=== PATIENT | female | born 1990 | race Caucasian/White ===

== ENCOUNTER 2019-11-13 06:36 | Day surgery (SDC) | payer BC ==
[~2019-11-13 06:36] MED LIST: Lactated Ringers 1,000 ML IV SCH; Sodium Chloride 0.9% 10 ML SDV IV PRN; Sodium Chloride 0.9% 10 ML Syringe FLUSH PRN; Sodium Chloride 0.9% 2.5 ML Syringe FLUSH PRN
[2019-11-13] MEDS ORDERED: Midazolam 1 MG/ML 2 ML SDV ONE (07:07)
[2019-11-13] MEDS ORDERED: Propofol 200 MG/20 ML SDV ONE (07:07)
[2019-11-13] MEDS ORDERED: Lidocaine 2% 5 ML SDV ONE (07:07)
[2019-11-13] MEDS ORDERED: fentaNYL 100 MCG/2 ML SDV ONE (07:08)
--- NOTE | 2019-11-13 07:31 | PCM.PREANE ---
Preanesthetic Assessment - Anesthesia/Transfusion/Family Hx Anesthesia History: Prior Anesthesia Without Reaction Family History of Anesthesia Reaction: No Transfusion History: No Prior Transfusion(s) - Review of Systems General: No Symptoms Pulmonary: No Symptoms Cardiovascular: No Symptoms Gastrointestinal: No Symptoms Neurological: No Symptoms Other: Reports: None - Physical Assessment NPO Status Date: 11/12/19 Vital Signs: Last Vital Signs Temp 97.5 F 11/13/19 06:50 Pulse 57 L 11/13/19 06:50 Resp 16 11/13/19 06:50 BP 113/75 11/13/19 06:50 Pulse Ox 100 11/13/19 06:50 Height: 5 ft 10 in Weight: 64.864 kg ASA Class: 2 Mental Status: Alert & Oriented x3 Airway Class: Mallampati = 1 Dentition: Reports: Normal Dentition ROM/Head Extension: Full Lungs: Clear to Auscultation, Normal Respiratory Effort Cardiovascular: Regular Rate, Regular Rhythm - Allergies Allergies/Adverse Reactions: Allergies Allergy/AdvReac Type Severity Reaction Status Date / Time No Known Allergies Allergy Verified 11/09/19 10:09 - Blood Blood Available: No - Anesthesia Plan Pre-Op Medication Ordered: None - Acknowledgements Anesthesia Type Planned: General Anesthesia (tiva) Pt an Appropriate Candidate for the Planned Anesthesia: Yes Alternatives and Risks of Anesthesia Discussed w Pt/Guardian: Yes Pt/Guardian Understands and Agrees with Anesthesia Plan: Yes PreAnesthesia Questionnaire HEENT History: Reports: Other (See Below) Other HEENT History: uses glasses for reading Musculoskeletal History: Reports: Fracture Other Musculoskeletal History: hx of fx clavicle - Past Surgical History Head Surgeries/Procedures: Reports: None HEENT Surgical History: Reports: Oral Surgery Other HEENT Surgeries/Procedures: wisdom teeth - SUBSTANCE USE Smoking Status *Q: Never Smoker Recreational Drug Use History: No - HOME MEDS Home Medications: Home Meds . [No Known Home Meds] 11/09/19 [History] - CURRENT (IN HOUSE) MEDS Current Meds: Current Medications Lactated Ringer's (Ringers, Lactated) 1,000 mls @ 125 mls/hr IV ASDIRECTED VINNY Sodium Chloride (Saline Flush) 10 ml FLUSH ASDIRECTED PRN PRN Reason: Keep Vein Open Sodium Chloride (Saline Flush) 2.5 ml FLUSH ASDIRECTED PRN PRN Reason: Keep Vein Open Sodium Chloride (Saline Flush) 10 ml FLUSH ASDIRECTED PRN PRN Reason: Keep Vein Open Sodium Chloride (Saline Flush) 2.5 ml FLUSH ASDIRECTED PRN PRN Reason: Keep Vein Open Sodium Chloride (Normal Saline) 10 ml IV ASDIRECTED PRN PRN Reason: IV Use Discontinued Medications Fentanyl (Sublimaze) Confirm Administered Dose 100 mcg .ROUTE .STK-MED ONE Stop: 11/13/19 07:09 Lidocaine (Xylocaine-Mpf 2%) Confirm Administered Dose 5 ml .ROUTE .STK-MED ONE Stop: 11/13/19 07:08 Midazolam HCl (Versed 1 Mg/Ml) Confirm Administered Dose 2 mg .ROUTE .STK-MED ONE Stop: 11/13/19 07:08 Propofol (Diprivan 20 Ml) Confirm Administered Dose 600 mg .ROUTE .STK-MED ONE Stop: 11/13/19 07:08
--- NOTE | 2019-11-13 08:46 | PCM.OPNOTE ---
- General Post-Op/Procedure Note Date of Surgery/Procedure: 11/13/19 Operative Procedure(s): Diagnostic colonoscopy Findings: Inflammation of the terminal ileum and anal canal/distal rectum Pre Op Diagnosis: bright red bleeding per rectum Post-Op Diagnosis: Inflamation of the terminal ileum and distal rectum Anesthesia Technique: MAC Primary Surgeon: Norah Goodman Condition: Good
--- NOTE | 2019-11-13 09:01 | PCM.POSTAN ---
POST ANESTHESIA ASSESSMENT - MENTAL STATUS Mental Status: Alert, Oriented - VITAL SIGNS Vital Signs: Last Vital Signs Temp 97.5 F 11/13/19 08:42 Pulse 59 L 11/13/19 08:57 Resp 10 L 11/13/19 08:57 BP 102/66 11/13/19 08:57 Pulse Ox 99 11/13/19 08:57 - RESPIRATORY Respiratory Status: Respiratory Rate WNL, Airway Patent, O2 Saturation Stable - CARDIOVASCULAR CV Status: Pulse Rate WNL, Blood Pressure Stable - GASTROINTESTINAL GI Status: No Symptoms - POST OP HYDRATION Hydration Status: Adequate & Stable
--- NOTE | 2019-11-13 09:02 | PCM48HPAN ---
Post Anesthesia Note - EVALUATION WITHIN 48HRS OF ANESTHETIC Vital Signs in Normal Range: Yes Patient Participated in Evaluation: Yes Respiratory Function Stable: Yes Airway Patent: Yes Cardiovascular Function Stable: Yes Hydration Status Stable: Yes Pain Control Satisfactory: Yes Nausea and Vomiting Control Satisfactory: Yes Mental Status Recovered: Yes Vital Signs: Last Vital Signs Temp 97.5 F 11/13/19 08:42 Pulse 59 L 11/13/19 08:57 Resp 10 L 11/13/19 08:57 BP 102/66 11/13/19 08:57 Pulse Ox 99 11/13/19 08:57
--- NOTE | 2019-11-13 11:41 | OR ---
SURGEON: NORAH GOODMAN MD DATE OF PROCEDURE: 11/13/2019 PREOPERATIVE DIAGNOSIS: Bright red bleeding per rectum. POSTOPERATIVE DIAGNOSES: Inflammation of the terminal ileum and inflammation of the rectum. PROCEDURE PERFORMED: Diagnostic colonoscopy with biopsies. PRIMARY SURGEON: Norah Goodman MD ANESTHESIA: MAC. INSTRUMENT USED: Olympus colonoscope. EXTENT OF EXAM: To the cecum. PREPARATION: Good. LIMITATIONS: None. INDICATIONS FOR EXAMINATION: The patient is a 29-year-old female who presented to clinic with 2 weeks of bright red bleeding per rectum with bowel movements. A digital rectal exam in clinic was normal. The decision was made to proceed to the operating room to perform a diagnostic colonoscopy. I explained the procedure, expected perioperative course, and risks. The patient verbalized understanding and wishes to proceed. PROCEDURE IN DETAIL: The patient was brought into the endoscopy suite and placed in the left lateral decubitus position. A time-out was completed verifying the patient's name, age, date of , allergies, and procedure to be performed. Monitored anesthesia care was induced and continuous oxygen was provided via nasal cannula throughout the procedure. After adequate sedation was achieved, a digital rectal exam was performed. Again, this was within normal limits. A well-lubricated colonoscope was inserted in the rectum and advanced under direct visualization to the level of the cecum. The cecum was identified by both visual and anatomic landmarks. A photograph was taken of the cecal cap as well as with the scope retroflexed within the cecum. The scope was then fully withdrawn while examining the color, texture, anatomy, and integrity of the mucosa from the cecum to the anal canal. The patient was noted to have inflammation around the terminal ileum. I attempted to intubate the terminal ileum, but was unable to do so. Biopsies were taken around the terminal ileum and sent to pathology for histologic review. The ascending, transverse, descending, and sigmoid colon mucosa all appeared normal. Biopsies were taken in each of these areas and sent to pathology for histologic review as well. The scope was brought into the rectum and retroflexed to allow visualization of the anal canal opening. The distal rectum appeared inflamed. Biopsies were taken of the inflamed appearing tissue circumferentially and sent to pathology, labeled as rectal biopsies. The scope was then straightened out and fully withdrawn. The cecum to anus time was 10 minutes. The patient tolerated the procedure well and was transferred to the PACU in stable condition. ENDOSCOPIC DIAGNOSES: Inflammation of the terminal ileum and inflammation of the rectum. RECOMMENDATIONS: Follow up in clinic in 2 weeks. A stool sample was taken during the scope and will be sent for stool cultures as well. CHRIS MAYORGA /[id number]
== END 2019-11-13 09:30 | disposition home or self-care (01) ==
LOC: MW.SDS 06:36
PROVIDERS: ATTEND Surgery
DX: K52.9 Noninfective gastroenteritis and colitis, unspecified (principal); K62.89 Other specified diseases of anus and rectum
CPT/HCPCS: 36415; 45380; 84703; 87045; 87046; 87449; 87899; J2001; J2250; J2704; J3010; J7120; 00811; 88305

== ENCOUNTER 2022-02-25 19:06 | Inpatient (IN) | payer BC ==
[2022-02-25] MEDS: Lactated Ringers 1,000 ML IV SCH (20:45)
[2022-02-25] MEDS ORDERED: Terbutaline 1 MG/ML SDV SUBCUT PRN (21:00)
[2022-02-25] MEDS ORDERED: Water For Irrigation,Sterile 1,000 ML Container IRR PRN (21:00)
[2022-02-25] MEDS ORDERED: Ondansetron 4 MG/2 ML SDV IVPUSH PRN (21:00)
[2022-02-25] MEDS ORDERED: Butorphanol 1 MG/ML SDV IVPUSH PRN (21:00)
[2022-02-25] MEDS ORDERED: Lidocaine 1% 50 ML MDV INJECT PRN (21:00)
[2022-02-25] MEDS ORDERED: Methylergonovine 0.2 MG/1 ML Amp IM PRN (21:00)
[2022-02-25] MEDS ORDERED: Sodium Chloride 0.9% 20 ML SDV IV PRN (21:00)
[2022-02-25] MEDS ORDERED: Calcium Carbonate 500 MG Tab.Chew PO PRN (21:00)
[2022-02-25] MEDS ORDERED: Oxytocin/0.9 % Sodium Chloride 30 UNIT/500 ML BAG IV SCH ×2 (21:00)
[2022-02-25] MEDS ORDERED: Sodium Chloride 0.9% 10 ML Syringe FLUSH PRN (21:00)
[2022-02-25] MEDS ORDERED: Misoprostol 200 MCG Tab PO PRN (21:00)
[2022-02-25] MEDS ORDERED: Carboprost Tromethamine 250 MCG/1 ML Amp IM PRN (21:00)
[2022-02-25] MEDS ORDERED: Sodium Chloride 0.9% 2.5 ML Syringe FLUSH PRN (21:00)
[2022-02-25] MEDS ORDERED: Tranexamic Acid 1,000 MG in Sodium Chloride 0.9% 100 ML IV PRN (21:00)
[2022-02-25] MEDS: Misoprostol 25 MCG (1/4 of 100 MCG) Tab VAG PRN (21:39)
[2022-02-26] MEDS: Lactated Ringers 1,000 ML IV SCH ×3 (02:31→09:54)
[2022-02-26] MEDS: Misoprostol 25 MCG (1/4 of 100 MCG) Tab VAG PRN (03:52)
[2022-02-26] MEDS ORDERED: Bupivacaine 0.5% 10 ML SDV ONE (13:45)
[2022-02-26] MEDS ORDERED: Ropivacaine/PF 400 MG/200 ML PCA ONE (13:45)
[2022-02-26] MEDS ORDERED: Phenylephrine HCl In 0.9% NaCl 1 MG/10 ML Vial IVPUSH PRN (14:20)
[2022-02-26] MEDS ORDERED: ePHEDrine 50 MG/ML SDV IVPUSH PRN ×2 (14:20)
[2022-02-26] MEDS ORDERED: Phenylephrine HCl In 0.9% NaCl 1 MG/10 ML Vial IVPUSH SCH (14:30)
[2022-02-26] MEDS ORDERED: Ropivacaine HCl/PF 400 MG in Premix Bag 1 BAG EPIDUR SCH (14:30)
[2022-02-27] MEDS ORDERED: fentaNYL 100 MCG/2 ML SDV ONE (00:21)
[2022-02-27] MEDS ORDERED: Bupivacaine 0.5% 10 ML SDV ONE ×2 (00:21→01:08)
[2022-02-27] MEDS ORDERED: Lidocaine 2% 5 ML SDV ONE ×2 (00:21→00:46)
[2022-02-27] MEDS ORDERED: Citric Acid/Sodium Citrate Solution 30 ML Cup PO ONE (00:26)
[2022-02-27] MEDS ORDERED: Sodium Chloride 0.9% 20 ML SDV IV PRN (00:26)
[2022-02-27] MEDS ORDERED: ceFAZolin 2 GM in Premix Bag 1 BAG IV ONE (00:26)
[2022-02-27] MEDS ORDERED: Terbutaline 1 MG/ML SDV SUBCUT PRN (00:26)
[2022-02-27] MEDS ORDERED: Azithromycin 500 MG in Sodium Chloride 0.9% 250 ML IV ONE (00:26)
[2022-02-27] MEDS ORDERED: Sodium Chloride 0.9% 10 ML Syringe FLUSH PRN (00:26)
[2022-02-27] MEDS ORDERED: Sodium Chloride 0.9% 2.5 ML Syringe FLUSH PRN (00:26)
[2022-02-27] MEDS ORDERED: Oxytocin/0.9 % Sodium Chloride 30 UNIT/500 ML BAG IV SCH ×2 (00:30→01:45)
[2022-02-27] MEDS ORDERED: Lactated Ringers 1,000 ML IV SCH ×2 (00:30→01:45)
[2022-02-27] MEDS ORDERED: ceFAZolin 1 GM Vial ONE (00:31)
[2022-02-27] MEDS ORDERED: Ondansetron 4 MG/2 ML SDV ONE (00:31)
[2022-02-27] MEDS ORDERED: Oxytocin 10 Units/1 ML SDV ONE (00:31)
[2022-02-27] MEDS ORDERED: Dexamethasone 4 MG/ML 5 ML MDV ONE (00:31)
[2022-02-27] MEDS ORDERED: Ketorolac 30 MG/ML SDV ONE (00:31)
[2022-02-27] MEDS ORDERED: Azithromycin 500 MG Vial ONE (00:33)
[2022-02-27] MEDS ORDERED: Ropivacaine 0.5% 5 MG/ML 30 ML SDV ONE (01:08)
[2022-02-27] MEDS ORDERED: Morphine PF 10 MG/10 ML SDV ONE (01:09)
[2022-02-27] MEDS ORDERED: Oxytocin 10 Units/1 ML SDV IM PRN (01:31)
[2022-02-27] MEDS ORDERED: Tranexamic Acid 1,000 MG in Sodium Chloride 0.9% 100 ML IV PRN (01:31)
[2022-02-27] MEDS ORDERED: Methylergonovine 0.2 MG/1 ML Amp IM PRN (01:31)
[2022-02-27] MEDS ORDERED: Lanolin 100% Cream 7 GM Tube TOP PRN (01:31)
[2022-02-27] MEDS ORDERED: Misoprostol 200 MCG Tab RECTAL PRN (01:31)
[2022-02-27] MEDS ORDERED: Bisacodyl 10 MG Supp RECTAL PRN (01:31)
[2022-02-27] MEDS ORDERED: diphenhydrAMINE 50 MG/ML SDV IVPUSH PRN ×2 (01:31→01:56)
[2022-02-27] MEDS ORDERED: Ondansetron 4 MG/2 ML SDV IVPUSH PRN ×3 (01:31→01:56)
[2022-02-27] MEDS ORDERED: Ketorolac 30 MG/ML SDV IVPUSH SCH (01:45)
[2022-02-27] MEDS ORDERED: fentaNYL 100 MCG/2 ML SDV IVPUSH PRN (01:56)
[2022-02-27] MEDS ORDERED: Naloxone 0.4 MG/ML SDV IVPUSH PRN (01:56)
[2022-02-27] MEDS ORDERED: Morphine 2 MG/ML SYRINGE IVPUSH PRN (01:56)
[2022-02-27] MEDS ORDERED: Albuterol 0.083% 2.5 MG/3 ML Neb Soln NEB PRN (01:56)
[2022-02-27] MEDS ORDERED: fentaNYL 50 MCG/ML SDV IVPUSH PRN (01:56)
[2022-02-27] MEDS ORDERED: Acetaminophen/oxyCODONE 325-5 MG Tab PO PRN (01:56)
[2022-02-27] MEDS ORDERED: HYDROmorphone 1 MG/ML Syringe IVPUSH PRN (01:56)
[2022-02-27] MEDS ORDERED: Metoclopramide 10 MG/2 ML SDV IVPUSH PRN (01:56)
[2022-02-27] MEDS: Ketorolac 30 MG/ML SDV IVPUSH SCH ×3 (07:07→18:43)
[2022-02-27] MEDS: Docusate Sodium 100 MG Cap PO SCH (09:06)
[2022-02-28] MEDS: Ketorolac 30 MG/ML SDV IVPUSH SCH (01:08)
[2022-02-28] MEDS: Docusate Sodium 100 MG Cap PO SCH ×2 (09:25→20:36)
[2022-02-28] MEDS: Ibuprofen 800 MG Tab PO PRN ×2 (09:32→18:19)
[2022-02-28] MEDS: Acetaminophen/oxyCODONE 325-5 MG Tab PO PRN ×3 (09:33→20:37)
[2022-03-01] MEDS: Acetaminophen/oxyCODONE 325-5 MG Tab PO PRN ×3 (00:28→08:58)
[2022-03-01] MEDS: Ibuprofen 800 MG Tab PO PRN (04:47)
[2022-03-01] MEDS: Docusate Sodium 100 MG Cap PO SCH (08:58)
== END 2022-03-01 15:49 | disposition home or self-care (01) | DRG 540 ==
LOC: MW.OBCHECK 19:06 → MW.OB 19:09 → MW.OBCHECK 20:59 → MW.OB 21:00 → OBSVTOIN 02-27 00:52 → MW.OB 02-27 06:30
PROVIDERS: ADMIT Obstetrics & Gynecology; ATTEND Obstetrics & Gynecology
PROC: 10D00Z1 Extraction of Products of Conception, Low, Open Approach (ICD-10-PCS; principal; 2022-02-27)
PROC: 4A1HXCZ Monitoring of Products of Conception, Cardiac Rate, External Approach (ICD-10-PCS; 2022-02-27)
PROC: 10907ZC Drainage of Amniotic Fluid, Therapeutic from Products of Conception, Via Natural or Artificial Opening (ICD-10-PCS; 2022-02-27)
PROC: 3E033VJ Introduction of Other Hormone into Peripheral Vein, Percutaneous Approach (ICD-10-PCS; 2022-02-27)
PROC: 3E0P7VZ Introduction of Hormone into Female Reproductive, Via Natural or Artificial Opening (ICD-10-PCS; 2022-02-27)
DX: O43.113 Circumvallate placenta, third trimester (principal); Z37.0 Single live birth; O62.1 Secondary uterine inertia; Z3A.39 39 weeks gestation of pregnancy; O09.813 Supervision of pregnancy resulting from assisted reproductive technology, third trimester; Z20.822 Contact with and (suspected) exposure to COVID-19
CPT/HCPCS: 36415; 51702; 59025; 82803; 85014; 85018; 85027; 86592; 86850; 86900; 86901; A9270-GY; J0456; J0690; J1100; J1885; J2274; J2405; J2590; J2795; J3010; J3105; J3490; J7050; J7120; U0002

== ENCOUNTER 2022-09-02 06:41 | Day surgery (SDC) | payer BC, OTHER ==
[~2022-09-02 06:41] MED LIST changes: -Sodium Chloride 0.9% 10 ML SDV IV PRN; +Sodium Chloride 0.9% 20 ML SDV IV PRN; +ceFAZolin 2 GM in Sodium Chloride 0.9% 50 ML IV ONE
[2022-09-02] MEDS ORDERED: ceFAZolin 1 GM Vial ONE (07:18)
[2022-09-02] MEDS ORDERED: Bupivacaine 0.5% 30 ML SDV ONE (07:30)
[2022-09-02] MEDS ORDERED: Lidocaine 1% 20 ML MDV ONE (07:30)
== END 2022-09-02 08:22 | disposition home or self-care (01) ==
LOC: MW.SDS 06:41
PROVIDERS: ATTEND Surgery
DX: L72.0 Epidermal cyst (principal); Z98.890 Other specified postprocedural states
CPT/HCPCS: 11403; J0690; J3490; J7120

== ENCOUNTER 2024-12-27 07:36 | Emergency (ER) | payer BC, OTHER ==
[2024-12-27 08:05] LABS: APPEARANCE,URINE CLEAR; GLUCOSE,URINE NEGATIVE (NEGATIVE); OCCULT BLOOD,URINE TRACE-INTACT (NEGATIVE)
[2024-12-27 08:13] LABS: SQUAMOUS EPITHELIAL CELLS,UR FEW
[2024-12-27 08:37] LABS: BASOPHILS ABSOLUTE AUTO 0.03 K/uL (0.00-0.20); BASOPHILS PERCENT AUTO 0.2 % (0.0-1.0); EOSINOPHILS ABSOLUTE AUTO 0.00 K/uL (0.00-0.45); EOSINOPHILS PERCENT AUTO 0.0 % (0.0-6.0); IMMATURE GRAN ABSOLUTE AUTO 0.06 K/uL (0.00-0.05); IMMATURE GRAN PERCENT AUTO 0.5 % (0.0-0.4); LYMPHOCYTES ABSOLUTE AUTO 0.54 K/uL (1.00-4.80); LYMPHOCYTES PERCENT AUTO 4.4 % (24.0-44.0); MEAN PLATELET VOLUME 9.7 fL (9.4-12.3); MONOCYTES ABSOLUTE AUTO 0.98 K/uL (0.00-0.80); MONOCYTES PERCENT AUTO 7.9 % (0.0-8.0); NEUTROPHILS ABSOLUTE AUTO 10.76 K/uL (1.80-7.70); NEUTROPHILS PERCENT AUTO 87.0 % (41.0-71.0); NRBC ABSOLUTE 0.00 K/uL (0.00-0.02); NRBC PERCENT 0.0 /100WBC (0.0-0.2); PLATELET COUNT,PLT 223 K/uL (150-400); RED BLOOD CELL COUNT 4.80 M/uL (4.10-5.30); WHITE BLOOD CELL COUNT,WBC 12.37 K/uL (3.9-11.3)
[2024-12-27 09:00] LABS: A/G RATIO 1.0 (0.9-1.6); ALANINE AMINOTRANSFERASE,ALT 15.0 IU/L (14-63); ASPARTATE AMNIOTRANSFERASE,AST 16.0 IU/L (15-37); BILIRUBIN TOTAL 0.4 mg/dL (0.2-1.0); BLOOD UREA NITROGEN,BUN 11.0 mg/dL (7.0-18.0); CARBON DIOXIDE,CO2 23.2 mmol/L (21.0-32.0); CHLORIDE,CL 103.0 mmol/L (98-107); CREATININE 1.1 mg/dL (0.6-1.0); EST CRCL DRUG DOSING (CG) 79.4 mL/min; GLUCOSE RANDOM 116.0 mg/dL (74-106); POTASSIUM,K 4.0 mmol/L (3.5-5.1); PROTEIN TOTAL,TP 7.5 g/dL (6.4-8.2); SODIUM,NA 139.0 mmol/L (136-145)
[2024-12-27 09:07] LABS: ESTIMATED GFR 68.0 mL/min (>60)
== END 2024-12-27 09:22 | disposition home or self-care (01) ==
LOC: MW.ED 07:36
DX: M79.10 Myalgia, unspecified site (principal); R50.9 Fever, unspecified; Z79.899 Other long term (current) drug therapy
CPT/HCPCS: 36415; 80053; 81001; 81025; 83690; 85025; 87428; 99284; A9270; 99283